=== PATIENT | female | born 2000 | race Caucasian/White ===

== ENCOUNTER 2023-01-24 12:46 | Day surgery (SDC) | payer OTHER ==
[2023-01-24 13:11] VITALS: BMI 48.6
[2023-01-24 13:58] LABS: #Eosinphils 0.1 10x3/uL (0.0-0.5); #Monocytes 0.7 10x3/uL (0.0-1.1); #Neutrophils 5.2 10x3/uL (1.5-8.4); %Basophils 0.4 % (0.0-2.0); %Eosinophils 1.1 % (0.0-6.0); %Lymphocytes 25.6 % (18.0-47.0); %Monocytes 8.1 % (0.0-10.0); %Neutrophils 64.4 % (40.0-75.0); Hematocrit 36.8 % (34.9-44.5); Hemoglobin 12.1 g/dL (12.0-15.5); Mean Corpuscular HGB CONC 32.9 g/dL (32.0-36.0); Mean Corpuscular Hemoglobin 27.8 pg (27.0-33.0); Mean Corpuscular Volume 84.4 fl (81.6-98.3); Platelet Count 269 10x3/uL (150-450); RBC Distribution Width 13.9 % (11.5-14.5); Red Blood Cell (RBC) Count 4.36 10x6/uL (3.90-5.03); White Blood Cell (WBC) Count 8.1 10x3/uL (3.5-10.5)
[2023-01-24 14:12] LABS: ALT (SGPT) 13 U/L (8-55); AST (SGOT) 15 U/L (5-34); Albumin 3.3 g/dL (3.5-5.0); Alkaline Phosphatase 110 U/L (40-110); Anion Gap 12 mmol/L (10-20); BUN (Urea Nitrogen) 5 mg/dL (7.0-18.7); Bilirubin, Total 0.2 mg/dL (0.2-1.2); Calc. Creatinine Clearance 295 mL/min (70-130); Calcium 8.9 mg/dL (7.8-10.44); Carbon Dioxide 21 mmol/L (22-29); Chloride 107 mmol/L (98-107); Estimated GFR 129; Globulin 3.1 g/dL (2.4-3.5); Glucose 76 mg/dL (70-105); Potassium 4.5 mmol/L (3.5-5.1); Protein, Total 6.4 g/dL (6.0-8.3); Sodium 135 mmol/L (136-145)
[2023-01-24 14:45] LABS: Creatinine, Urine 126.8 mg/dL (47-110)
== END 2023-01-24 17:40 | disposition home or self-care (01) ==
LOC: CSHLD/OP 12:46
PROVIDERS: ATTEND Family Medicine
DX: O13.3 Gestational [pregnancy-induced] hypertension without significant proteinuria, third trimester (principal); Z3A.36 36 weeks gestation of pregnancy
CPT/HCPCS: 36415; 76815; 76819; 80053; 82570; 84156; 85025; 99285

== ENCOUNTER 2023-01-27 18:30 | Inpatient (IN) | payer OTHER ==
[~2023-01-27 18:30] MED LIST: Bupivacaine 0.25% HCL 30 ML VIAL ONE; Bupivacaine PF 0.5% 30 ML VIAL ONE; Terbutaline Sulfate 1 MG/ML VIAL ONE
[2023-01-27] MEDS ORDERED: Ondansetron PF 4 MG/2 ML Vial IVP PRN (21:27)
[2023-01-27] MEDS ORDERED: Tranexamic Acid 1,000 MG/10 ML VIAL IVP PRN (21:27)
[2023-01-27] MEDS ORDERED: Carboprost 250 MCG/ML AMP IM PRN (21:27)
[2023-01-27] MEDS ORDERED: Lidocaine 1% (PF) 30 ML VIAL SC PRN (21:27)
[2023-01-27] MEDS ORDERED: Oxytocin 30 units/NS 500 ML 500 ML IV SCH ×3 (21:27)
[2023-01-27] MEDS ORDERED: Diphenoxylate HCl/Atropine Tablet PO PRN (21:27)
[2023-01-27] MEDS ORDERED: fentaNYL 50 mcg/mL 1 mL Vial SLOW IVP PRN (21:27)
[2023-01-27] MEDS ORDERED: HYDROcodone/Acetaminophen 5/325 mg Tablet PO PRN (21:27)
[2023-01-27] MEDS ORDERED: Misoprostol 200 MCG TAB PR PRN (21:27)
[2023-01-27] MEDS ORDERED: Promethazine HCl 25 MG/ML VIAL IM PRN (21:27)
[2023-01-27] MEDS ORDERED: Acetaminophen 500 MG TAB PO PRN (21:27)
[2023-01-27] MEDS ORDERED: Ibuprofen 800 MG TAB PO PRN (21:27)
[2023-01-27] MEDS ORDERED: hydrALAZINE 20 MG/ML VIAL SLOW IVP PRN (21:27)
[2023-01-27 21:28] VITALS: BMI 48.2
[2023-01-27 21:49] LABS: Hemoglobin 11.6 g/dL (12.0-15.5); Mean Corpuscular HGB CONC 33.1 g/dL (32.0-36.0); Mean Corpuscular Hemoglobin 27.4 pg (27.0-33.0); Mean Corpuscular Volume 82.5 fl (81.6-98.3); Mean Platelet Volume 11.6 fl (7.4-10.4); Platelet Count 273 10x3/uL (150-450); RBC Distribution Width 14.2 % (11.5-14.5); Red Blood Cell (RBC) Count 4.24 10x6/uL (3.90-5.03); White Blood Cell (WBC) Count 6.9 10x3/uL (3.5-10.5)
[2023-01-27] MEDS: Misoprostol 100 MCG TAB VAG SCH (21:55)
[2023-01-27 22:51] LABS: ALT (SGPT) 14 U/L (8-55); AST (SGOT) 15 U/L (5-34); Albumin 3.3 g/dL (3.5-5.0); Alkaline Phosphatase 108 U/L (40-110); Anion Gap 12 mmol/L (10-20); BUN (Urea Nitrogen) 8 mg/dL (7.0-18.7); Bilirubin, Total 0.2 mg/dL (0.2-1.2); Calc. Creatinine Clearance 289 mL/min (70-130); Calcium 8.8 mg/dL (7.8-10.44); Carbon Dioxide 20 mmol/L (22-29); Chloride 108 mmol/L (98-107); Estimated GFR 129; Globulin 2.7 g/dL (2.4-3.5); Glucose 99 mg/dL (70-105); Potassium 4.3 mmol/L (3.5-5.1); Sodium 136 mmol/L (136-145)
[2023-01-27 23:21] LABS: Syphilis Antibody Nonreactive (Nonreactive); Syphilis Antibody Index 0.17 S/CO (<1.00 Non-Reactive)
[2023-01-27 23:22] LABS: HBSAg Index 0.18 S/CO (0-0.99); Hep B Surf Ag - L&D Non-Reactive S/CO (NonReactive)
[2023-01-28] MEDS: Misoprostol 100 MCG TAB VAG SCH ×2 (01:25→11:16)
[2023-01-28 02:42] LABS: Creatinine, Urine 178.22 mg/dL (47-110)
[2023-01-28] MEDS ORDERED: fentaNYL/Ropivacaine Epidural 100 ML ONE (04:31)
[2023-01-28] MEDS ORDERED: Ondansetron PF 4 MG/2 ML Vial IVP PRN ×4 (06:09→18:57)
[2023-01-28] MEDS ORDERED: ePHEDrine Sulfate 50 MG/10 ML VIAL SLOW IVP PRN (06:09)
[2023-01-28] MEDS ORDERED: Acetaminophen 325 MG TAB PO PRN (06:09)
[2023-01-28] MEDS ORDERED: Moisturizing Cream (Eucerin) 113 GM JAR TOP PRN ×2 (06:09→14:10)
[2023-01-28] MEDS ORDERED: diphenhydrAMINE 50 MG/ML VIAL IVP PRN ×2 (06:09→14:10)
[2023-01-28] MEDS ORDERED: Promethazine HCl 25 MG/ML VIAL IM PRN ×3 (06:09→18:57)
[2023-01-28] MEDS ORDERED: Lactated Ringer's 500 ML IV PRN (06:09)
[2023-01-28] MEDS ORDERED: Naloxone HCl 0.4 mg/ml Vial IVP PRN ×4 (06:09→14:10)
[2023-01-28] MEDS ORDERED: fentaNYL 2 mcg/Ropivacaine 0.2% Epidural 100 ML CADD EPIDURAL SCH ×2 (06:15)
[2023-01-28] MEDS ORDERED: Communication Order-Pharmacy FS SCH ×2 (06:15→14:15)
[2023-01-28] MEDS ORDERED: Azithromycin 500 MG VIAL ONE ×2 (10:47→12:42)
[2023-01-28] MEDS ORDERED: CEFAZOLIN 2 GM VIAL ONE ×2 (10:47→12:41)
[2023-01-28] MEDS ORDERED: Sodium Chloride 0.9% 100 ML ONE (12:42)
[2023-01-28] MEDS ORDERED: Morphine PF 10 MG/10 ML VIAL ONE (13:00)
[2023-01-28] MEDS ORDERED: Oxytocin 10 UNITS/ML VIAL ONE ×2 (13:01→13:46)
[2023-01-28] MEDS ORDERED: fentaNYL 50 mcg/mL 1 mL Vial ONE (13:01)
[2023-01-28] MEDS ORDERED: Ondansetron PF 4 MG/2 ML Vial ONE (13:11)
[2023-01-28] MEDS ORDERED: Lidocaine 1% PF 5 ML VIAL ONE (13:11)
[2023-01-28] MEDS ORDERED: Promethazine HCl 25 MG/ML VIAL ONE (13:25)
[2023-01-28] MEDS ORDERED: Naloxone HCl 0.4 mg/ml Vial IV PRN (14:10)
[2023-01-28] MEDS ORDERED: Promethazine HCl 25 MG SUPP PR PRN (14:10)
[2023-01-28] MEDS ORDERED: fentaNYL 50 mcg/mL 1 mL Vial SLOW IVP PRN (14:10)
[2023-01-28] MEDS ORDERED: Ketorolac Tromethamine 30 MG/ML VIAL IVP PRN (14:10)
[2023-01-28] MEDS ORDERED: Meperidine HCl/PF 25 MG/ML VIAL SLOW IVP PRN (14:10)
[2023-01-28] MEDS ORDERED: Ketorolac Tromethamine 30 MG/ML VIAL IVP SCH (14:15)
[2023-01-28] MEDS: Lactated Ringer's 1,000 ML IV SCH (16:56)
[2023-01-28] MEDS ORDERED: Meperidine HCl/PF 25 MG/ML VIAL IM PRN (18:57)
[2023-01-28] MEDS ORDERED: diphenhydrAMINE 25 MG CAP PO PRN (18:57)
[2023-01-28] MEDS ORDERED: Simethicone Chewable 80 MG TAB PO PRN (18:57)
[2023-01-28] MEDS ORDERED: HYDROcodone/Acetaminophen 5/325 mg Tablet PO PRN ×2 (18:57)
[2023-01-28] MEDS ORDERED: Boostrix 0.5 ML (Tdap) VIAL (>/=7 yrs of age) IM ONE (18:57)
[2023-01-28] MEDS ORDERED: hydrALAZINE 20 MG/ML VIAL SLOW IVP PRN (18:57)
[2023-01-28] MEDS ORDERED: Bisacodyl 10 MG SUPP PR PRN (18:57)
[2023-01-28] MEDS ORDERED: Oxytocin 30 units/NS 500 ML 500 ML IV SCH (18:57)
[2023-01-28] MEDS ORDERED: Lanolin Ointment 7 GM TUBE TOP PRN (18:57)
[2023-01-28] MEDS: Ketorolac Tromethamine 30 MG/ML VIAL IVP SCH (20:53)
[2023-01-28] MEDS: Docusate 100 MG CAP PO SCH (22:05)
[2023-01-28] MEDS: Ferrous Sulfate 325 MG TAB PO SCH (22:05)
[2023-01-29] MEDS: Ketorolac Tromethamine 30 MG/ML VIAL IVP SCH ×4 (01:48→21:50)
[2023-01-29 04:52] LABS: Hemoglobin 11.3 g/dL (12.0-15.5); Mean Corpuscular HGB CONC 33.2 g/dL (32.0-36.0); Mean Corpuscular Hemoglobin 27.8 pg (27.0-33.0); Mean Corpuscular Volume 83.7 fl (81.6-98.3); Platelet Count 239 10x3/uL (150-450); RBC Distribution Width 14.2 % (11.5-14.5); Red Blood Cell (RBC) Count 4.06 10x6/uL (3.90-5.03); White Blood Cell (WBC) Count 8.5 10x3/uL (3.5-10.5)
[2023-01-29] MEDS: Lactated Ringer's 1,000 ML IV SCH (06:51)
[2023-01-29] MEDS: Docusate 100 MG CAP PO SCH ×2 (08:07→21:50)
[2023-01-29] MEDS: Prenatal Vitamin 1 TAB PO SCH (08:07)
[2023-01-29] MEDS: Ferrous Sulfate 325 MG TAB PO SCH ×2 (13:25→21:43)
[2023-01-29] MEDS ORDERED: Labetalol HCl 100 MG TAB PO SCH (21:00)
[2023-01-29] MEDS ORDERED: Ibuprofen 800 MG TAB PO SCH (22:00)
[2023-01-29] MEDS ORDERED: Ibuprofen 800 MG TAB PO PRN (22:00)
[2023-01-30] MEDS: Ketorolac Tromethamine 30 MG/ML VIAL IVP SCH ×4 (05:37→14:16)
[2023-01-30] MEDS: Lactated Ringer's 1,000 ML IV SCH (08:49)
[2023-01-30] MEDS: Prenatal Vitamin 1 TAB PO SCH (10:21)
[2023-01-30] MEDS: Labetalol HCl 100 MG TAB PO SCH ×3 (10:21→22:35)
[2023-01-30] MEDS: Docusate 100 MG CAP PO SCH ×2 (10:21→22:35)
[2023-01-30] MEDS: Ferrous Sulfate 325 MG TAB PO SCH ×2 (10:22→19:11)
[2023-01-30] MEDS: Ibuprofen 800 MG TAB PO SCH ×2 (14:46→22:35)
[2023-01-31] MEDS: Ibuprofen 800 MG TAB PO SCH ×2 (05:09→14:34)
[2023-01-31] MEDS: Ferrous Sulfate 325 MG TAB PO SCH (07:43)
[2023-01-31] MEDS: Labetalol HCl 100 MG TAB PO SCH ×2 (08:39→14:35)
[2023-01-31] MEDS: Prenatal Vitamin 1 TAB PO SCH (08:39)
[2023-01-31] MEDS: Docusate 100 MG CAP PO SCH (08:39)
[2023-01-31 11:18] VITALS: TEMP 98
[2023-01-31 16:47] VITALS: BP 137/85
[2023-02-03] MEDS ORDERED: Ibuprofen 800 MG TAB PO SCH (06:00)
== END 2023-01-31 16:40 | disposition home or self-care (01) | DRG 788 ==
LOC: CSHLD 20:01 → CSHPP 01-28 16:28
PROVIDERS: ADMIT Family Medicine; ATTEND Family Medicine
PROC: 10D00Z1 Extraction of Products of Conception, Low, Open Approach (ICD-10-PCS; principal; 2023-01-28)
PROC: 10H07YZ Insertion of Other Device into Products of Conception, Via Natural or Artificial Opening (ICD-10-PCS; 2023-01-28)
PROC: 10907ZC Drainage of Amniotic Fluid, Therapeutic from Products of Conception, Via Natural or Artificial Opening (ICD-10-PCS; 2023-01-28)
PROC: 3E0P7VZ Introduction of Hormone into Female Reproductive, Via Natural or Artificial Opening (ICD-10-PCS; 2023-01-28)
DX: O13.4 Gestational [pregnancy-induced] hypertension without significant proteinuria, complicating childbirth (principal); Z37.0 Single live birth; Z3A.37 37 weeks gestation of pregnancy; O99.214 Obesity complicating childbirth; Z79.899 Other long term (current) drug therapy; E66.01 Morbid (severe) obesity due to excess calories; O76 Abnormality in fetal heart rate and rhythm complicating labor and delivery
CPT/HCPCS: 36415; 51702; 80053; 82570; 84156; 85027; 86780; 86850; 86900; 86901; 87340; J0360; J1885; J2274; J2405; J2550; J2590; J3010; J3105; J7120; S0020

== ENCOUNTER 2023-05-10 11:39 | Emergency (ER) | payer OTHER ==
[2023-05-10 12:03] LABS: Bilirubin Neg (Negative); Blood, Urine 250 (Negative); Clarity Clear (Clear); Glucose, Urine (Dipstick) Normal (Negative); Ketone, Urine 5 mg/dL (Negative); Leukocyte 25 (Negative); Nitrite Negative (Negative); Protein, Urine (Dipstick) 30 mg/dl (Neg-Trace); Specific Gravity, Urine 1.015 (1.005-1.030); Urobilinogen Normal mg/dL (Less than 2); pH, Urine 6.5 (5.0-9.0)
[2023-05-10 12:32] LABS: #Basophils 0.1 10x3/uL (0.0-0.2); #Eosinphils 0.1 10x3/uL (0.0-0.5); #Monocytes 0.4 10x3/uL (0.0-1.1); #Neutrophils 4.4 10x3/uL (1.5-8.4); %Basophils 0.7 % (0.0-2.0); %Eosinophils 1.5 % (0.0-6.0); %Lymphocytes 34.3 % (18.0-47.0); %Monocytes 5.7 % (0.0-10.0); %Neutrophils 57.5 % (40.0-75.0); ALT (SGPT) 13 U/L (8-55); AST (SGOT) 13 U/L (5-34); Albumin 4.2 g/dL (3.5-5.0); Alkaline Phosphatase 52 U/L (40-110); Anion Gap 14 mmol/L (10-20); BUN (Urea Nitrogen) 4 mg/dL (7.0-18.7); Bilirubin, Total 0.5 mg/dL (0.2-1.2); Calc. Creatinine Clearance 0 mL/min (70-130); Calcium 9.3 mg/dL (7.8-10.44); Carbon Dioxide 20 mmol/L (22-29); Chloride 106 mmol/L (98-107); Estimated GFR 128; Globulin 3.3 g/dL (2.4-3.5); Glucose 89 mg/dL (70-105); Hematocrit 37.3 % (34.9-44.5); Hemoglobin 12.3 g/dL (12.0-15.5); Mean Corpuscular Hemoglobin 27.7 pg (27.0-33.0); Mean Platelet Volume 9.9 fl (7.4-10.4); Platelet Count 350 10x3/uL (150-450); Potassium 3.7 mmol/L (3.5-5.1); Protein, Total 7.5 g/dL (6.0-8.3); RBC Distribution Width 13.9 % (11.5-14.5); Red Blood Cell (RBC) Count 4.44 10x6/uL (3.90-5.03); Sodium 136 mmol/L (136-145); White Blood Cell (WBC) Count 7.6 10x3/uL (3.5-10.5)
[2023-05-10 12:34] LABS: Bacteria/HPF None Seen HPF (None Seen); CAUTI Indications for Culture Pregnancy; RBC/HPF Greater than 50 HPF (0-3); Squamous Epithelial 0-3 HPF (0-3); WBC/HPF 0-3 HPF (0-3)
[2023-05-10 12:35] LABS: Urine Culture Reflex Yes Yes
== END 2023-05-10 14:01 | disposition home or self-care (01) ==
LOC: CSHERS 11:39
DX: O20.0 Threatened abortion (principal); O16.1 Unspecified maternal hypertension, first trimester; Z3A.01 Less than 8 weeks gestation of pregnancy
CPT/HCPCS: 36415; 76817; 80053; 81001; 84702; 85025; 87086

== ENCOUNTER 2023-07-28 | Outpatient (CLI) | payer MEDICAID | END 2023-07-28 12:23 | disposition home or self-care (01) | DX: Z34.82 Encounter for supervision of other normal pregnancy, second trimester (principal); Z3A.22 22 weeks gestation of pregnancy ==

== ENCOUNTER 2023-11-26 05:36 | Inpatient (IN) | payer MEDICAID ==
[2023-11-24 10:02] LABS: Hematocrit 39.7 % (34.9-44.5); Platelet Count 258 10x3/uL (150-450)
[2023-11-24 10:36] LABS: Syphilis Antibody Nonreactive (Nonreactive); Syphilis Antibody Index 0.18 S/CO (<1.00 Non-Reactive)
[2023-11-24 10:37] LABS: HBsAg Index 0.15 S/CO (0-0.99); Hep B Surf Ag Non-Reactive S/CO (NonReactive)
[2023-11-26 06:23] VITALS: BMI 51.7
[2023-11-26] MEDS ORDERED: Meperidine HCl/PF 25 MG (1 mL) VIAL SLOW IVP PRN (07:08)
[2023-11-26] MEDS ORDERED: diphenhydrAMINE 50 MG/ML VIAL IVP PRN (07:08)
[2023-11-26] MEDS ORDERED: Naloxone HCl 0.4 mg/ml Vial IV PRN (07:08)
[2023-11-26] MEDS ORDERED: Moisturizing Cream (Eucerin) 113 GM JAR TOP PRN (07:08)
[2023-11-26] MEDS ORDERED: Promethazine HCl 25 MG/ML VIAL IM PRN ×3 (07:08→11:33)
[2023-11-26] MEDS ORDERED: Ondansetron PF 4 MG/2 ML Vial IVP PRN ×4 (07:08→11:33)
[2023-11-26] MEDS ORDERED: Naloxone HCl 0.4 mg/ml Vial IVP PRN ×2 (07:08)
[2023-11-26] MEDS ORDERED: fentaNYL 50 mcg/mL 1 mL Vial SLOW IVP PRN (07:08)
[2023-11-26] MEDS ORDERED: HYDROmorphone 0.5 MG/0.5 ML SYRINGE SLOW IVP PRN (07:08)
[2023-11-26] MEDS ORDERED: Communication Order-Pharmacy FS SCH (07:15)
[2023-11-26] MEDS ORDERED: Oxytocin 30 units/NS 500 ML 500 ML IV SCH (09:00)
[2023-11-26] MEDS ORDERED: Lactated Ringer's 1,000 ML IV SCH (09:00)
[2023-11-26] MEDS ORDERED: hydrALAZINE 20 MG/ML VIAL SLOW IVP PRN ×2 (09:00→11:33)
[2023-11-26] MEDS ORDERED: CEFAZOLIN 3 GM in Sodium Chloride 0.9% 100 ML IVPB SCH (09:00)
[2023-11-26] MEDS ORDERED: Famotidine/PF 20 mg/2ml Vial SLOW IVP PRN (09:00)
[2023-11-26] MEDS ORDERED: Bicitra 30 ML UDCUP PO PRN (09:00)
[2023-11-26] MEDS ORDERED: Bisacodyl 10 MG SUPP PR PRN (11:33)
[2023-11-26] MEDS ORDERED: Meperidine HCl/PF 25 MG (1 mL) VIAL IM PRN (11:33)
[2023-11-26] MEDS ORDERED: Lanolin Ointment 7 GM TUBE TOP PRN (11:33)
[2023-11-26] MEDS ORDERED: diphenhydrAMINE 25 MG CAP PO PRN (11:33)
[2023-11-26] MEDS: Phytonadione Neonatal 1 MG/0.5 ML AMP ONE (12:15)
[2023-11-26] MEDS: Hepatitis B Vaccine 10 MCG/0.5 ML SYR ONE (12:15)
[2023-11-26] MEDS: CEFAZOLIN 2 GM VIAL ONE (12:15)
[2023-11-26] MEDS: Erythromycin Base 0.5% Oint 1 GM TUBE ONE (12:15)
[2023-11-26] MEDS: Ondansetron PF 4 MG/2 ML Vial ONE (12:16)
[2023-11-26] MEDS: Phenylephrine 40 MG/NS 250 ML 250 ML ONE (12:16)
[2023-11-26] MEDS: Morphine PF 10 MG/10 ML VIAL ONE (12:16)
[2023-11-26] MEDS: Ketorolac Tromethamine 30 MG (1 mL) VIAL ONE (12:17)
[2023-11-26] MEDS: Famotidine/PF 20 mg/2ml Vial ONE (12:17)
[2023-11-26] MEDS: Dexamethasone 10 MG/ML VIAL ONE (12:17)
[2023-11-26] MEDS: Oxytocin 10 UNITS/ML VIAL ONE ×2 (12:17→12:18)
[2023-11-26] MEDS: Lidocaine 1% PF 5 ML VIAL ONE (12:18)
[2023-11-26] MEDS: CEFAZOLIN 1 GM VIAL ONE (12:18)
[2023-11-26] MEDS: Boostrix 0.5 ML (Tdap) VIAL (>/=7 yrs of age) IM ONE (12:18)
[2023-11-26] MEDS: Ketorolac Tromethamine 30 MG (1 mL) VIAL IVP SCH (12:58)
[2023-11-26] MEDS ORDERED: Ketorolac Tromethamine 30 MG (1 mL) VIAL IVP PRN (14:00)
[2023-11-26] MEDS: Docusate 100 MG CAP PO SCH (19:19)
[2023-11-27] MEDS: Simethicone Chewable 80 MG TAB PO PRN (00:10)
[2023-11-27] MEDS: HYDROcodone/Acetaminophen 5/325 mg Tablet PO PRN ×2 (00:10→17:02)
[2023-11-27] MEDS: Ferrous Sulfate 325 MG TAB PO SCH (01:22)
[2023-11-27 04:27] LABS: Hematocrit 34.5 % (34.9-44.5); Hemoglobin 11.6 g/dL (12.0-15.5); Mean Corpuscular HGB CONC 33.6 g/dL (32.0-36.0); Mean Corpuscular Hemoglobin 28.3 pg (27.0-33.0); Mean Corpuscular Volume 84.1 fL (81.6-98.3); Mean Platelet Volume 10.9 fL (7.4-10.4); Platelet Count 216 10x3/uL (150-450); RBC Distribution Width 14.4 % (11.5-14.5); White Blood Cell (WBC) Count 12.1 10x3/uL (3.5-10.5)
[2023-11-27] MEDS: Prenatal Vitamin 1 TAB PO SCH (08:36)
[2023-11-27] MEDS: Ibuprofen 800 MG TAB PO SCH (13:58)
[2023-11-29 08:29] VITALS: BP 137/84; TEMP 98.4
== END 2023-11-29 13:20 | disposition home or self-care (01) | DRG 788 ==
LOC: CSHLD 05:36 → CSHPP 11:20
PROVIDERS: ADMIT Family Medicine; ATTEND Family Medicine
PROC: 10D00Z1 Extraction of Products of Conception, Low, Open Approach (ICD-10-PCS; principal; 2023-11-26)
DX: O34.211 Maternal care for low transverse scar from previous cesarean delivery (principal); O99.214 Obesity complicating childbirth; E66.01 Morbid (severe) obesity due to excess calories; Z3A.39 39 weeks gestation of pregnancy; Z37.0 Single live birth
CPT/HCPCS: 36415; 51702; 85014; 85018; 85027; 85049; 86780; 86850; 86900; 86901; 87340; J0690; J1100; J1885; J2274; J2405; J2590; S0028

== ENCOUNTER 2023-12-02 19:16 | Observation (INO) | payer MEDICAID ==
[2023-12-02] MEDS: Magnesium Sulfate 20 gm/500 ml 20 GM/500 ML BAG ONE (19:53)
[2023-12-02 20:00] LABS: Creatinine, Urine 39.17 mg/dL (47-110); Protein, Urine Random Quant Less than 10 mg/dL (1-14)
[2023-12-02] MEDS ORDERED: Lorazepam 2 MG/ML VIAL SLOW IVP PRN (20:33)
[2023-12-02] MEDS ORDERED: Promethazine HCl 25 MG/ML VIAL IM PRN (20:33)
[2023-12-02] MEDS ORDERED: Calcium Gluc 4.6 MEQ/10 ML (100 MG/ML) SLOW IVP PRN (20:33)
[2023-12-02] MEDS ORDERED: Docusate 100 MG CAP PO PRN (20:33)
[2023-12-02] MEDS ORDERED: fentaNYL 50 mcg/mL 1 mL Vial SLOW IVP PRN (20:33)
[2023-12-02] MEDS ORDERED: Magnesium Sulfate 20 gm/500 ml 20 GM/500 ML BAG IVPB SCH (20:45)
[2023-12-02 21:14] VITALS: BMI 49.8
[2023-12-02 21:27] LABS: #Basophils 0.04 10x3/uL (0.0-0.2); #Eosinphils 0.31 10x3/uL (0.0-0.5); #Monocytes 0.64 10x3/uL (0.0-1.1); #Neutrophils 3.84 10x3/uL (1.5-8.4); %Basophils 0.6 % (0.0-2.0); %Eosinophils 4.5 % (0.0-6.0); %Lymphocytes 28.8 % (18.0-47.0); %Monocytes 9.4 % (0.0-10.0); %Neutrophils 56.3 % (40.0-75.0); Hematocrit 34.1 % (34.9-44.5); Hemoglobin 11.6 g/dL (12.0-15.5); Mean Corpuscular Hemoglobin 28.9 pg (27.0-33.0); Mean Platelet Volume 9.9 fL (7.4-10.4); Platelet Count 295 10x3/uL (150-450); RBC Distribution Width 13.8 % (11.5-14.5); Red Blood Cell (RBC) Count 4.01 10x6/uL (3.90-5.03); White Blood Cell (WBC) Count 6.8 10x3/uL (3.5-10.5)
[2023-12-02 21:33] LABS: ALT (SGPT) 30 U/L (8-55); AST (SGOT) 30 U/L (5-34); Albumin 2.6 g/dL (3.5-5.0); Alkaline Phosphatase 70 U/L (40-110); Anion Gap 13 mmol/L (10-20); BUN (Urea Nitrogen) 9 mg/dL (7.0-18.7); Bilirubin, Total 0.3 mg/dL (0.2-1.2); Calc. Creatinine Clearance 291 mL/min (70-130); Calcium 8.6 mg/dL (7.8-10.44); Carbon Dioxide 24 mmol/L (22-29); Chloride 107 mmol/L (98-107); Estimated GFR 127; Globulin 3.3 g/dL (2.4-3.5); Glucose 91 mg/dL (70-105); Potassium 3.8 mmol/L (3.5-5.1); Protein, Total 5.9 g/dL (6.0-8.3); Sodium 140 mmol/L (136-145)
[2023-12-02] MEDS: Labetalol HCl 100 MG TAB PO SCH (22:14)
[2023-12-02] MEDS: Acetaminophen 500 MG TAB PO PRN (22:37)
[2023-12-02] MEDS: Ondansetron PF 4 MG/2 ML Vial IVP PRN (22:39)
[2023-12-03] MEDS: hydrALAZINE 20 MG/ML VIAL SLOW IVP PRN (05:39)
[2023-12-03] MEDS: Magnesium Sulfate 20 gm/500 ml 20 GM/500 ML BAG IVPB SCH (06:20)
[2023-12-03] MEDS: hydrALAZINE 20 MG/ML VIAL ONE (06:25)
[2023-12-03] MEDS: Labetalol HCl 100 MG/20 ML VIAL ONE (07:24)
[2023-12-03] MEDS: Lactated Ringer's 1,000 ML IV SCH (07:28)
[2023-12-03] MEDS: Labetalol HCl 100 MG TAB PO SCH ×3 (07:29→13:49)
[2023-12-03] MEDS: Labetalol HCl 100 MG/20 ML VIAL SLOW IVP PRN (07:48)
[2023-12-03] MEDS ORDERED: Labetalol HCl 100 MG/20 ML VIAL SLOW IVP PRN (07:48)
[2023-12-03] MEDS ORDERED: HYDROcodone/Acetaminophen 5/325 mg Tablet PO PRN ×2 (07:51)
[2023-12-03] MEDS: Oxytocin 30 units/NS 500 ML 0 ML ONE (08:00)
[2023-12-03] MEDS: Labetalol HCl 100 MG/20 ML VIAL SLOW IVP SCH (08:01)
[2023-12-03] MEDS: hydrALAZINE 20 MG/ML VIAL SLOW IVP SCH (08:01)
[2023-12-03] MEDS ORDERED: Labetalol HCl 100 MG TAB PO SCH (14:00)
[2023-12-03 20:13] LABS: ALT (SGPT) 35 U/L (8-55); AST (SGOT) 30 U/L (5-34); Albumin 2.7 g/dL (3.5-5.0); Alkaline Phosphatase 69 U/L (40-110); Anion Gap 12 mmol/L (10-20); BUN (Urea Nitrogen) 5 mg/dL (7.0-18.7); Bilirubin, Total 0.3 mg/dL (0.2-1.2); Calc. Creatinine Clearance 287 mL/min (70-130); Calcium 7.9 mg/dL (7.8-10.44); Carbon Dioxide 24 mmol/L (22-29); Chloride 104 mmol/L (98-107); Estimated GFR 126; Globulin 3.3 g/dL (2.4-3.5); Glucose 92 mg/dL (70-105); Magnesium 3.9 mg/dL (1.6-2.6); Potassium 3.7 mmol/L (3.5-5.1); Sodium 136 mmol/L (136-145)
[2023-12-04] MEDS: NIFEdipine XL 30 MG ER.TAB PO SCH (09:32)
[2023-12-05 11:27] VITALS: TEMP 98.1
[2023-12-05 13:15] VITALS: BP 136/79
== END 2023-12-05 14:31 | disposition home or self-care (01) ==
LOC: CSHLD 19:16 → INTOOBSV 19:16 → CSHPED 12-03 18:38
PROVIDERS: ADMIT Family Medicine; ATTEND Family Medicine
DX: O14.90 Unspecified pre-eclampsia, unspecified trimester (principal); O99.210 Obesity complicating pregnancy, unspecified trimester; E66.01 Morbid (severe) obesity due to excess calories; Z79.899 Other long term (current) drug therapy; Z3A.00 Weeks of gestation of pregnancy not specified
CPT/HCPCS: 36415; 80053; 82570; 83615; 83735; 84156; 86140; 96374; 96375; 96376; G0378; J0360; J2405; J3475; J7120